=== PATIENT | male | born 1985 | race Caucasian/White ===

== ENCOUNTER 2022-11-25 20:58 | Emergency (ER) | payer SELFPAY ==
[~2022-11-25] VITALS: Ht 165.1 cm; Wt 68.0 kg
--- NOTE | 2022-11-25 20:58 | NUR ---
PT MILY ALS. TAKEN TO BED 4
[2022-11-25 20:59] VITALS: BP 130/69; PULSE 130; RESP 24; TEMP 98.9; O2SAT 99
--- NOTE | 2022-11-25 20:59 | NUR ---
BIBA by drug intoxication. per pt, took meth. denies pmhx or allergies.
[2022-11-25] MEDS ORDERED: HALOPERIDOL IM 5 MG/ML VIAL IM ONE (21:55)
[2022-11-25] MEDS ORDERED: LORazepam 2 MG/ML VIAL IM ONE (21:55)
--- NOTE | 2022-11-25 23:39 | NUR ---
Pt resting comfortably at this time, rise and fall of chest noted. No s/s pain or distress. VSS.
--- NOTE | 2022-11-26 01:23 | NUR ---
Pt resting comfortably. no s/s pain or distress. rise and fall of chest noted.
--- NOTE | 2022-11-26 03:19 | NUR ---
Resting comfortably at this time with no s/s pain or discomfort, noted with rise and fall of chest
[2022-11-26 05:00] VITALS: BP 95/60; PULSE 93; RESP 16; TEMP 98.9; O2SAT 97
--- NOTE | 2022-11-26 05:00 | NUR ---
Patient discharged with v/s stable. Written and verbal after care instructions given and explained. Patient verbalized understanding. Ambulatory with steady gait. All questions addressed prior to discharge. Advised to follow up with PMD.
== END 2022-11-26 05:00 | disposition home or self-care (01) ==
LOC: MED 20:58
DX: F15.129 Other stimulant abuse with intoxication, unspecified (principal); R45.1 Restlessness and agitation; Z79.899 Other long term (current) drug therapy
CPT/HCPCS: 96372; 99285; J1630; J2060